=== PATIENT | female | born 1945 | race Two or more races ===

== ENCOUNTER 2024-05-14 08:43 | Inpatient (IN) | payer BC, OTHER ==
[~2024-05-14] VITALS: Ht 154.9 cm; Wt 74.7 kg
--- NOTE | 2024-05-14 09:06 | ECG ---
[facility] Test Date: 2024-05-14 Test Time: 09:04:40 Pat Name: LUCAS VALDOVINOS Department: ER Room: Gender: F Gastroenterology Manager: GP : 1945 Requested By: TAN VELASCO Order Number: [id number] Reading MD: Measurements Intervals [place] Rate: 73 P: 78 OR: 127 QRS: 58 QRSD: 82 T: 253 QT: 368 QTc: 406 Interpretive Statements Sinus rhythm Atrial premature complex Nonspecific repol abnormality, diffuse leads Please click the below link to view image of tracing.
--- NOTE | 2024-05-14 09:27 | ED.PDOC ---
HPI Comments 79 year old female presents to the ED with chief complaint of high BP. Patient reports that she was seen in a doctor's office yesterday and had a BP of 210/115, however, this morning she read it again and it was about the same. Patient relays that she has been experiencing blurred vision with associated headache and dizziness since last night. Patient notes she takes 10mg of Lisinopril normally. Patient denies any chest pain, SOB, N/V, numbness, or weakness. 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 Family History Family History: Reviewed,noncontributory to illness Social History Smoker: Non-Smoker Alcohol: Denies ETOH Use Drugs: Denies Drug Use Lives In: Home Constitutional: denies: chills, diaphoresis, fatigue, fever, malaise, sweats, weakness, others EENTM: reports: blurred vision; denies: double vision, ear bleeding, ear discharge, ear drainage, ear pain, ear ringing, eye pain, eye redness, hearing loss, mouth pain, mouth swelling, nasal discharge, nose bleeding, nose congestion, nose pain, photophobia, tearing, throat pain, throat swelling, voice changes, others Respiratory: denies: cough, hemoptysis, orthopnea, SOB at rest, shortness of breath, SOB with excertion, stridor, wheezing, others Cardiovascular: denies: chest pain, dizzy spells, diaphoresis, Dyspnea on exertion, edema, irregular heart beat, left arm pain, lightheadedness, palpitations, PND, syncope, others Gastrointestinal: denies: abdomen distended, abdominal pain, blood streaked bowels, constipated, diarrhea, dysphagia, difficulty swallowing, hematemesis, melena, nausea, poor appetite, poor fluid intake, rectal bleeding, rectal pain, vomiting, others Genitourinary: denies: abnormal vagina bleeding, burning, dyspareunia, dysuria, flank pain, frequency, hematuria, incontinence, pain, , vagina discharge, urgency, others Neurological: reports: dizziness, headache; denies: fainting, left sided numbness, left sided weakness, numbness, paresthesia, pre-existing deficit, right sided numbness, right sided weakness, seizure, speech problems, tingling, tremors, weakness, others Musculoskeletal: denies: back pain, gout, joint pain, joint swelling, muscle pain, muscle stiffness, neck pain, others Integumetry: denies: bruises, change in color, change in hair/nails, dryness, laceration, lesions, lumps, rash, wounds, others Allergic/Immunocompromised: denies: Difficulty Healing, Frequent Infections, Hives, Itching, others Hematologic/Lymphatic: denies: anemia, blood clots, easy bleeding, easy bruising, swollen glands, others Endocrine: denies: excessive hunger, excessive sweating, excessive thirst, excessive urination, flushing, intolerance to cold, intolerance to heat, unexplained weight gain, unexplained weight loss, others Psychiatric: denies: anxiety, bipolar disorder, depression, hopeless, panic disorder, schizophrenia, sleepless, suicidal, others All Other Systems: Reviewed and Negative Physical Exam General Appearance: Moderate Distress, Normal HEENT: Normal ENT Inspection, PERRL/EOMI Neck: Full Range of Motion, Non-Tender, Normal, Normal Inspection Respiratory: Chest Non-Tender, Lungs Clear, No Accessory Muscle Use, No Respiratory Distress, Normal Breath Sounds Cardiovascular: No Edema, No JVD, No Murmur, No Gallop, Normal Peripheral Pulses, Regular Rate/Rhythm Breast Exam: Deferred Gastrointestinal: No Organomegaly, Non Tender, No Pulsatile Mass, Normal Bowel Sounds, Soft Genitalia: Deferred Pelvic: Deferred Rectal: Deferred Extremities: No calf tenderness, Normal capillary refill, Normal inspection, Normal range of motion, Non-tender, No pedal edema Musculoskeletal : Apperance: Normal Neurologic: Alert, filler sifter helper II-XII nml as Tested, No Motor Deficits, Normal Affect, Normal Mood, No Sensory Deficits Cerebellar Function: Normal Reflexes: Normal Skin: Dry, Normal Color, Warm Peripheral Pulses: 3+ Radial (R), 3+ Radial (L) Lymphatic: No Adenopathy Was a procedure done? Was a procedure done?: No CP Differential Dx Differential Diagnosis: A-fib, A-Flutter, Angina, Anxiety / Panic Attack, Atrial Dysrhythmia, Electrolyte Disorder X-Ray, Labs, Meds, VS Vital Signs Date Time Temp Pulse Resp B/P (MAP) Pulse Ox O2 Delivery O2 Flow Rate FiO2 05/14/24 11:55 98.8 73 18 169/70 (103) 96 98.8 05/14/24 09:04 73 05/14/24 09:01 98.0 82 20 195/80 (118) 96 Lab Test 05/14/24 09:55 05/14/24 08:59 Range/Units White Blood Count 12.7 H 4.4-10.8 10^3/uL Red Blood Count 4.78 4.0-5.20 10^6/uL Hemoglobin 14.2 12.2-16.2 g/dL Hematocrit 43.1 36.0-46.0 % Mean Corpuscular Volume 90.0 80.0-100.0 fL Mean Corpuscular Hemoglobin 29.6 28.0-32.0 pg Mean Corpuscular Hemoglobin Concent 32.9 32.0-36.0 g/dL Red Cell Distribution Width 14.2 11.8-14.3 % Platelet Count 291 140-450 10^3/uL Mean Platelet Volume 10.2 6.9-10.8 fL Neutrophils (%) (Auto) 80.0 37.0-80.0 % Lymphocytes (%) (Auto) 14.7 10.0-50.0 % Monocytes (%) (Auto) 4.7 0.0-12.0 % Eosinophils (%) (Auto) 0.1 0.0-7.0 % Basophils (%) (Auto) 0.5 0.0-2.0 % Neutrophils # (Auto) 10.2 H 1.6-8.6 10 ^3/uL Lymphocytes # (Auto) 1.9 0.4-5.4 10 ^3/uL Monocytes # (Auto) 0.6 0-1.3 10 ^3/uL Eosinophils # (Auto) 0 0-0.8 10 ^3/uL Basophils # (Auto) 0.1 0-0.2 10 ^3/uL Nucleated Red Blood Cells 0.0 % Sodium Level 142 136-145 mmol/L Potassium Level 4.6 3.5-5.1 mmol/L Chloride Level 105 98-107 mmol/L Carbon Dioxide Level 29 20-31 mmol/L Anion Gap 8 5-15 Blood Urea Nitrogen 30 H 9-23 mg/dL Creatinine 1.14 H 0.550-1.02 mg/dL Glomerular Filtration Rate Calc 49 >90 mL/min BUN/Creatinine Ratio 26.3 H 10.0-20.0 Serum Glucose 117 H 74-106 mg/dL Calcium Level 11.1 H 8.7-10.4 mg/dL Troponin I High Sensitivity 7 </=34 ng/L POC Glucose 117 H 70-106 mg/dl Patient alert. Complaining of having high blood pressure. Was given clonidine. Saturation pristine on room air. Blood pressure slightly elevated. EKG does show changes. Echocardiogram. Stress test. Cardiology consultation. Explained to the patient. Continue cardiac monitoring. Time of 1ST Reevaluation: 10:12 Reevaluation 1ST: Unchanged Patient Education/Counseling: Diagnosis, Treatment Family Education/Counseling: No Family Present Additional Information I reviewed the following notes from patient's past medical encounters: None The following tests were ordered, and results were reviewed by me: EKG, CBC, BMP, UA, Troponin, CXR Additional Information was gathered from interviewing the following independent historians: None I reviewed and agreed with the following test results read by other providers: CXR I discussed treatment and results with medical personnel. Departure 1 Departure Time of Disposition: 12:32 Impression: Primary Impression: Hypertensive urgency Disposition: ADMITTED INPATIENT Admit to: Med Surg Condition: Guarded Critical Care Note Critical Care Time?: Yes (45 min-critical care time only) Stability Stability form required: No Heart Score Heart Score: Heart Score Response (Comments) Value History Highly Suspicious 2 EKG Normal 0 Age >65 2 Risk Factors >3 or Hx ASHD 2 Troponin Normal limit 0 Total 6 I personally scribed for TAN VELASCO MD ([email or web address]) on 05/14/24 at 09:27. Electronically submitted by Darin Baez ([email or web address]). TAN VELASCO MD May 14, 2024 09:27
[2024-05-14 10:25] LABS: Basophils # (auto) 0.1 10 ^3/uL (0-0.2); Basophils % (auto) 0.5 % (0.0-2.0); Eosinophils # (auto) 0 10 ^3/uL (0-0.8); Eosinophils % (auto) 0.1 % (0.0-7.0); Hematocrit 43.1 % (36.0-46.0); Hemoglobin 14.2 g/dL (12.2-16.2); Lymphocytes # (auto) 1.9 10 ^3/uL (0.4-5.4); Lymphocytes % (auto) 14.7 % (10.0-50.0); Mean Corpuscular Hemoglobin 29.6 pg (28.0-32.0); Mean Corpuscular Hgb Conc. 32.9 g/dL (32.0-36.0); Monocytes # (auto) 0.6 10 ^3/uL (0-1.3); Monocytes % (auto) 4.7 % (0.0-12.0); Neutrophils # (auto) 10.2 10 ^3/uL (1.6-8.6); Platelet Count (auto) 291 10^3/uL (140-450); Red Blood Cells 4.78 10^6/uL (4.0-5.20); Red Cell Distribution Width 14.2 % (11.8-14.3); White Blood Cell 12.7 10^3/uL (4.4-10.8)
[2024-05-14 10:37] LABS: Chloride 105 mmol/L (98-107); Potassium 4.6 mmol/L (3.5-5.1); Sodium 142 mmol/L (136-145)
[2024-05-14 10:38] LABS: Anion Gap 8 (5-15); Carbon Dioxide 29 mmol/L (20-31)
[2024-05-14 10:43] LABS: BUN/Creatinine Ratio 26.3 (10.0-20.0)
[2024-05-14 10:44] LABS: Blood Urea Nitrogen 30 mg/dL (9-23); Calcium 11.1 mg/dL (8.7-10.4); Glucose 117 mg/dL (74-106)
[2024-05-14] MEDS ORDERED: ONDANSETRON HCL 4 MG/2 ML VIAL IV PRN (13:45)
[2024-05-14] MEDS ORDERED: hydrALAZINE HCL 20 MG/ML VL IV PRN (13:45)
[2024-05-14] MEDS ORDERED: LISI20TA56 PO (14:05)
[2024-05-14] MEDS ORDERED: ATOR40TA52 PO (14:05)
--- NOTE | 2024-05-14 14:17 | DVHHP2 ---
History of Present Illness Reason for Visit: High blood pressure History of Present Illness Rosalba Gaytan is an 79-year-old female with past medical history of hypertension who presents to the ED for increased blood pressure, blurred vision, headache, and dizziness. Patient states that around 4-5 p.m. yesterday she went to her pain management office and got pain shots, but before that the tech advised her that is her that her blood pressure was in the systolics to 200s and she needed to go home and rest. Patient is here for an evaluation. Patient states that she took her medications today with no relief. Patient denies any recent illnesses or recent sick contacts, denies any chest pain, shortness of breath, fever, chills, weakness, nausea, vomiting, diarrhea, and abdominal pain. Patient also reports that about a week ago she bumped her right knee into the foot board and is complaining of a lump. Cardiovascular: HTN Family History: Cancer, CVA, Other (Mom with stroke and dad with lung cancer) Smoke: No ALCOHOL: none Drugs: None Lives: Alone Domestic Violence: Neg Review of Systems Constitutional: No: Fever, Chills, Sweats, Weakness, Malaise, Other Eyes: Vision change; No: Pain, Conjunctivae inflammation, Eyelid inflammation, Other, Redness ENT: No: Ear pain, Ear discharge, Nose pain, Nose discharge, Nose congestion, Mouth pain, Mouth swelling, Throat pain, Throat swelling, Other Respiratory: No: Cough, Dry, Shortness of breath, SOB with excertion, Wheezing, Hemoptysis, Pleuritic Pain, Sputum, Wheezing, Other Cardiovascular: No: Chest Pain, Palpitations, Orthopnea, Paroxysmal Noc. Dyspnea, Edema, Lt Headedness, Other Gastrointestinal: No: Nausea, Vomiting, Abdominal Pain, Diarrhea, Constipation, Melena, Hematochezia, Other Genitourinary: No Dysuria, No Frequency, No Incontinence, No Hematuria, No Retention, No Other Musculoskeletal: No: other, neck pain, shoulder pain, arm pain, back pain, hand pain, leg pain, foot pain Skin: No: Rash, Lesions, Jaundice, Bruising, Other Neurological: No: Weakness, Numbness, Incoordination, Change in speech, Confusion, Seizures, Other Other Headache Dizziness Increased blood pressure Allergies: Coded Allergies: NO KNOWN ALLERGIES (Unverified , 05/14/24) Exam Vital Signs Vital Signs Date Time Temp Pulse Resp B/P (MAP) Pulse Ox O2 Delivery O2 Flow Rate FiO2 05/14/24 11:55 98.8 73 18 169/70 (103) 96 98.8 General Appearance: Alert, Oriented X3, Cooperative, No acute distress HEENT: Atraumatic, PERRLA, EOMI, Mucous membr. moist/pink Respiratory: Clear to auscultation, Normal air movement Cardiovascular: Regular rate, Normal S1, Normal S2, No murmurs Abdominal: Normal bowel sounds, Soft, No tenderness, No hepatospenomegaly, No masses Extremities: No clubbing, No cyanosis, No edema, Normal pulses, No tenderness/swelling Skin: No rashes, No breakdown, No significant lesion Neuro: Normal gait, Normal speech, Strength at 5/5 X4 ext, Normal tone, Sensation intact Psych/Mental Status: Mental status NL, Mood NL Labs/Xrays Labs Test 05/14/24 09:55 05/14/24 08:59 Range/Units White Blood Count 12.7 H 4.4-10.8 10^3/uL Red Blood Count 4.78 4.0-5.20 10^6/uL Hemoglobin 14.2 12.2-16.2 g/dL Hematocrit 43.1 36.0-46.0 % Mean Corpuscular Volume 90.0 80.0-100.0 fL Mean Corpuscular Hemoglobin 29.6 28.0-32.0 pg Mean Corpuscular Hemoglobin Concent 32.9 32.0-36.0 g/dL Red Cell Distribution Width 14.2 11.8-14.3 % Platelet Count 291 140-450 10^3/uL Mean Platelet Volume 10.2 6.9-10.8 fL Neutrophils (%) (Auto) 80.0 37.0-80.0 % Lymphocytes (%) (Auto) 14.7 10.0-50.0 % Monocytes (%) (Auto) 4.7 0.0-12.0 % Eosinophils (%) (Auto) 0.1 0.0-7.0 % Basophils (%) (Auto) 0.5 0.0-2.0 % Neutrophils # (Auto) 10.2 H 1.6-8.6 10 ^3/uL Lymphocytes # (Auto) 1.9 0.4-5.4 10 ^3/uL Monocytes # (Auto) 0.6 0-1.3 10 ^3/uL Eosinophils # (Auto) 0 0-0.8 10 ^3/uL Basophils # (Auto) 0.1 0-0.2 10 ^3/uL Nucleated Red Blood Cells 0.0 % Sodium Level 142 136-145 mmol/L Potassium Level 4.6 3.5-5.1 mmol/L Chloride Level 105 98-107 mmol/L Carbon Dioxide Level 29 20-31 mmol/L Anion Gap 8 5-15 Blood Urea Nitrogen 30 H 9-23 mg/dL Creatinine 1.14 H 0.550-1.02 mg/dL Glomerular Filtration Rate Calc 49 >90 mL/min BUN/Creatinine Ratio 26.3 H 10.0-20.0 Serum Glucose 117 H 74-106 mg/dL Calcium Level 11.1 H 8.7-10.4 mg/dL Troponin I High Sensitivity 7 </=34 ng/L POC Glucose 117 H 70-106 mg/dl Assessment/Plan Assessment/Plan Assessment/Plan: Hypertensive urgency Leukocytosis HIRO Lump on right knee Elevated BUN Elevated creatinine EKG done in ER Clonidine given ER UA Trop negative P.r.n. 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 [employer] CONS 05/14/24 Transmitted -[place] 13:45 Hydralazine Injection PHA 05/14/24 Logged (Apresoline Inject 13:45 Ceftriaxone 1gm/50ml PHA 05/15/24 Logged D5w (Rocephin) 09:00 Ceftriaxone 1gm/50ml PHA 05/14/24 Logged D5w (Rocephin) 13:45 Admit ADMIT 05/14/24 Transmitted 13:45 Allergies LAMBERT 05/14/24 In Process 13:45 Code Status CODE 05/14/24 Transmitted 13:45 2 Gm Sodium Diet DIET 05/14/24 Transmitted Dinner Sodium Chloride 0.9% PHA 05/14/24 Logged 13:45 Ondansetron Hcl PHA 05/14/24 Logged (Zofran) 13:45 Complete Blood Count LAB 05/15/24 Verified 04:00 Comprehensive LAB 05/15/24 Verified Metabolic Panel 04:00 Acetaminophen Tablet PHA 05/14/24 Logged (Tylenol Tablet) 13:45 Date of Service: May 14, 2024 Billing Provider: AYSE PURVIS Common Visit Codes: 61719-[id number] INP/OBS CARE (HIGH) AYSE PURVIS May 14, 2024 14:17
--- NOTE | 2024-05-14 14:24 | DVH ---
CLINICAL INFORMATION: 79 years old, Female; pain. TECHNIQUE: 3 views of the right knee were obtained. COMPARISON: None FINDINGS: No acute fracture or dislocation. [id number] joint space narrowing in all 3 compartme nts. [id number]-hw-[id number] prepatellar and superficial infrapatellar soft tissue swelling. No significant joint effusion. IMPRESSION: 1. No evidence of acute bony abnormality. 2. Evcy-[id number]-[id number] prepatellar and superficial infrapatellar soft tissue swelling.
[2024-05-14 14:31] VITALS: PULSE 85; RESP 18; O2SAT 96
[2024-05-14] MEDS: cloNIDine HCL 0.1 MG TAB PO ONE (14:35)
[2024-05-14 14:42] LABS: Urine Bacteria None Seen /hpf (None Seen)
[2024-05-14] MEDS: cefTRIAXone 1GM/50ML D5W 50 ML IV ONE (14:43)
[2024-05-14] MEDS: SODIUM CHLORIDE 0.9% 1,000 ML IV SCH (14:47)
[2024-05-14] MEDS: ACETAMINOPHEN 325 MG TAB PO PRN (15:20)
[2024-05-14 15:33] LABS: Urine Blood TRACE /uL (Negative); Urine Clarity Clear (Clear); Urine Color Light-Yellow (Yellow); Urine Protein, UAD TRACE (Negative); Urine Specific Gravity 1.029 (1.001-1.035); Urine Squamous Epithelial Cell FEW /hpf (<5); Urine Urobilinogen Normal (Negative); Urine WBC 8 /hpf (0 - 5); Urine pH 5.5 (5.0-9.0)
--- NOTE | 2024-05-14 16:24 | DVH ---
Exam: CT HEAD WITHOUT CONTRAST History: blurred vision Technique: [address] images through the posterior fossa and the supratentorial compart ment were acquired without contrast and imaged using soft tissue and bone algorithms. RADIATION DOSE: DLP 755.91 mGy.cm; CTDI vol 53.53 mGy. Comparison: None Findings: There is no evidence of an intracranial hemorrhage, acute large vessel infarct, mass effect, or midli ne shift. There is mild cerebral atrophy. Moderate calcification of the carotid siphons. The calvarium, orbits, paranasal sinuses, sella, middle ears, and mastoids are unremarkable. The superficial soft tissues are within normal limits. Impression: 1. No acute intracranial abnormality.
[2024-05-14 17:55] VITALS: BP 155/97; PULSE 73; RESP 16; TEMP 98.4; O2SAT 96
[2024-05-15] MEDS ORDERED: cefTRIAXone 1GM/50ML D5W 50 ML IV SCH (09:00)
== END 2024-05-14 23:16 | disposition left against medical advice (07) | DRG 305 ==
LOC: ER 08:43 → OVERFLOW 13:45 → WEST WING 22:52
DX: I16.0 Hypertensive urgency (principal); N17.9 Acute kidney failure, unspecified; D72.829 Elevated white blood cell count, unspecified; Z53.29 Procedure and treatment not carried out because of patient's decision for other reasons; Z79.899 Other long term (current) drug therapy; Z80.1 Family history of malignant neoplasm of trachea, bronchus and lung; Z82.3 Family history of stroke
CPT/HCPCS: 36415; 70450; 73560; 80048; 80053; 81001; 82962; 84484; 85025; 93005; 96365; 99291; G0378